=== PATIENT | male | born 1990 | race Two or more races ===

== ENCOUNTER 2017-06-10 12:32 | Emergency (ER) | payer OTHER ==
[~2017-06-10] VITALS: Ht 177.8 cm; Wt 106.1 kg
[2017-06-10 12:39] VITALS: BP 135/77
[2017-06-10] MEDS ORDERED: KETOROLAC TROMETH 60MG/2ML VIAL IM ONE (13:30)
[2017-06-10] MEDS ORDERED: cefTRIAXone SOD 1,000 MG VL IM ONE (13:30)
== END 2017-06-10 14:12 | disposition home or self-care (01) ==
LOC: ER 12:32
DX: J02.9 Acute pharyngitis, unspecified (principal)
CPT/HCPCS: 96372; 99284; J0696; J1885

== ENCOUNTER 2021-05-30 16:14 | Emergency (ER) | payer OTHER | END 2021-05-30 18:04 | disposition left against medical advice (07) | LOC: ER 16:14 | DX: Z04.1 Encounter for examination and observation following transport accident (principal); Z53.21 Procedure and treatment not carried out due to patient leaving prior to being seen by health care provider; V89.2XXA Person injured in unspecified motor-vehicle accident, traffic, initial encounter; Y93.89 Activity, other specified; Y92.89 Other specified places as the place of occurrence of the external cause; Y99.8 Other external cause status ==

== ENCOUNTER 2022-03-05 10:48 | Emergency (ER) | payer OTHER ==
[~2022-03-05] VITALS: Ht 180.3 cm; Wt 113.4 kg
[2022-03-05] MEDS ORDERED: ACETAMINOPHEN/CODEINE#3 (300/30mg) TAB PO ONE (12:00)
[2022-03-05] MEDS ORDERED: ONDANSETRON ODT 4 MG TAB PO ONE (12:00)
[2022-03-05 12:23] VITALS: BP 118/64
[2022-03-05] MEDS ORDERED: IBUP800T27 PO (12:44)
[2022-03-06] MEDS ORDERED: IBUP800T27 PO (13:10)
== END 2022-03-05 13:25 | disposition home or self-care (01) ==
LOC: ER 10:48
DX: S82.832A Other fracture of upper and lower end of left fibula, initial encounter for closed fracture (principal); S63.502A Unspecified sprain of left wrist, initial encounter; W01.0XXA Fall on same level from slipping, tripping and stumbling without subsequent striking against object, initial encounter; Y93.67 Activity, basketball; Y92.89 Other specified places as the place of occurrence of the external cause; Y99.8 Other external cause status
CPT/HCPCS: 29515; 73110; 73610; 99284; Q0162